=== PATIENT | female | born 1945 | race Two or more races ===

== ENCOUNTER 2017-07-03 11:28 | Inpatient (IN) | payer MEDICARE, OTHER ==
[~2017-07-03] VITALS: Ht 157.5 cm; Wt 94.6 kg
[~2017-07-03 11:28] MED LIST: BENA10TA3 PO; FERR-89 PO; METF500T4 PO; PIOG30TA10 PO; TNFMISC
[2017-07-03] MEDS ORDERED: IPRATROPIUM BROMIDE 0.5 MG/2.5 ML NEB SOLUTION NEB ONE ×2 (11:45→12:00)
[2017-07-03] MEDS ORDERED: 0.9% SODIUM CHLORIDE 5 ML NEB SOLUTION NEB ONE ×2 (11:45→12:34)
[2017-07-03] MEDS ORDERED: ALBUTEROL SULFATE 2.5 MG/0.5 ML NEB SOLUTION NEB ONE (11:45)
[2017-07-03] MEDS ORDERED: ALBUTEROL SULFATE 5 MG/ML 20 ML NEB SOLN [BULK] NEB ONE (12:00)
[2017-07-03 12:13] LABS: BASOPHILS # (AUTO) 0.03 K/uL (0.00-0.20); BASOPHILS % (AUTO) 0.5 % (0.0-2.0); EOSINOPHILS # (AUTO) 0.04 K/uL (0.00-0.70); EOSINOPHILS % (AUTO) 0.56 % (1.0-6.0); HEMATOCRIT 29.6 % (36-46); HEMOGLOBIN 9.5 g/dL (12.0-16.0); LYMPHOCYTES # (AUTO) 1.3 K/uL (1.0-4.8); LYMPHOCYTES % (AUTO) 18.9 % (22.0-44.0); MEAN CORPUSCULAR HEMOGLOBIN 29.4 pg (26.0-34.0); MEAN CORPUSCULAR HGB CONC 32.2 G/dL (31.0-37.0); MEAN CORPUSCULAR VOLUME 91 fL (80-100); MONOCYTES # (AUTO) 0.4 K/uL (0.1-1.0); MONOCYTES % (AUTO) 5.7 % (2.0-9.0); NEUTROPHILS # (AUTO) 5.2 K/uL (1.8-7.7); NEUTROPHILS % (AUTO) 74.4 % (40.0-70.0); PLATELET COUNT (AUTO) 213 K/uL (150-450); RED BLOOD CELL COUNT(AUTO) 3.24 MIL/uL (4.00-5.20)
[2017-07-03 12:22] LABS: CALCIUM, TOTAL 8.9 mg/dL (8.8-10.5); CREATININE 1.25 mg/dL (0.60-1.30); POTASSIUM 5.3 mmol/L (3.5-5.1)
[2017-07-03 12:30] LABS: LACTIC ACID 0.9 mmol/L (0.4-2.0)
[2017-07-03 12:37] LABS: ALBUMIN 3.1 g/dL (3.4-5.0); BILIRUBIN,TOTAL 0.2 mg/dL (0.1-1.0); TOTAL PROTEIN, SERUM 7.3 g/dL (6.4-8.2)
[2017-07-03 12:59] LABS: INFLUENZA TYPE A NEGATIVE FOR TYPE A (NEGATIVE); INFLUENZA TYPE B NEGATIVE FOR TYPE B (NEGATIVE)
[2017-07-03 13:20] LABS: APPEARANCE,URINE CLEAR (CLEAR); BILIRUBIN,URINE NEGATIVE (NEGATIVE); GLUCOSE, URINE (UA) 500 mg/dL (NEGATIVE); KETONES,URINE NEGATIVE (NEGATIVE); LEUKOCYTE ESTERASE ,URINE NEGATIVE (NEGATIVE); NITRATE,URINE NEGATIVE (NEGATIVE); OCCULT BLOOD,URINE TRACE (NEGATIVE); PH,URINE 5.5 (5.0-8.0); PROTEIN,URINE TRACE (NEGATIVE); UROBILINOGEN,URINE 0.2 mg/dL (<=1.0)
[2017-07-03 13:25] LABS: BACTERIA,URINE Few /HPF (None Seen); SQUAMOUS EPITHELIAL CELL,UR Few /LPF (None Seen); WBC,URINE 0-2 /HPF (0-5)
[2017-07-03] MEDS ORDERED: DEXAMETHASONE SOD PHOS 4 MG/ML 5 ML VIAL IVP ONE (13:45)
[2017-07-03] MEDS ORDERED: FUROSEMIDE 40 MG/4 ML VIAL IVP ONE (14:45)
[2017-07-03] MEDS ORDERED: ACETAMINOPHEN 325 MG TABLET PO PRN (15:45)
[2017-07-03] MEDS ORDERED: 0.9% SODIUM CHLORIDE 10 ML SYRINGE IVP PRN (15:45)
[2017-07-03] MEDS ORDERED: ONDANSETRON HCL 4 MG/2 ML VIAL IVP PRN (15:45)
[2017-07-03 18:50] VITALS: BP 138/74
[2017-07-03 20:11] VITALS: BP 123/61
[2017-07-03] MEDS ORDERED: INSULIN GLARGINE,HUM.REC.ANLOG 100 UNITS/ML SQ SCH (21:00)
[2017-07-03] MEDS ORDERED: DEXTROSE 50%-WATER 25 GM/50 ML SYRINGE IVP PRN (21:00)
[2017-07-03] MEDS: FUROSEMIDE 40 MG/4 ML VIAL IVP SCH (21:44)
[2017-07-03] MEDS: INSULIN ASPART 100 UNITS/ML SQ PRN (21:44)
[2017-07-03] MEDS ORDERED: INSNOV SQ (21:52)
[2017-07-03] MEDS ORDERED: INSLAN SQ (21:54)
[2017-07-03] MEDS ORDERED: POTASSIUM CHL 10 MEQ/WATER 50 ML IV PRN (22:30)
[2017-07-03] MEDS ORDERED: POTASSIUM CHLORIDE 20 MEQ ER TABLET PO PRN (22:30)
[2017-07-03] MEDS: INSULIN DETEMIR 100 UNITS/ML SQ SCH (23:42)
[2017-07-04 00:07] VITALS: BP 102/67
[2017-07-04 05:39] VITALS: BP 127/59
[2017-07-04] MEDS: INSULIN ASPART 100 UNITS/ML SQ PRN ×3 (06:12→21:25)
[2017-07-04 06:20] LABS: BASOPHILS % (AUTO) 0.4 % (0.0-2.0); EOSINOPHILS % (AUTO) 0 % (1.0-6.0); HEMATOCRIT 29.4 % (36-46); HEMOGLOBIN 9.8 g/dL (12.0-16.0); LYMPHOCYTES # (AUTO) 0.6 K/uL (1.0-4.8); LYMPHOCYTES % (AUTO) 8.1 % (22.0-44.0); MEAN CORPUSCULAR HEMOGLOBIN 30.3 pg (26.0-34.0); MEAN CORPUSCULAR HGB CONC 33.1 G/dL (31.0-37.0); MEAN CORPUSCULAR VOLUME 91 fL (80-100); MONOCYTES # (AUTO) 0.4 K/uL (0.1-1.0); MONOCYTES % (AUTO) 5.1 % (2.0-9.0); NEUTROPHILS # (AUTO) 6.1 K/uL (1.8-7.7); PLATELET COUNT (AUTO) 214 K/uL (150-450); RED BLOOD CELL COUNT(AUTO) 3.22 MIL/uL (4.00-5.20); RED CELL DISTRIBUTION WIDTH 17.2 % (11.5-14.5)
[2017-07-04 06:42] LABS: NEUTROPHILS % (AUTO) 86.4 % (40.0-70.0)
[2017-07-04 06:55] LABS: HEMOGLOBIN A1C 8.5 % (4.5-6.2)
[2017-07-04 06:59] LABS: CHOL/HDL RATIO 2.2 (3.9-5.7); CREATININE 1.25 mg/dL (0.60-1.30); POTASSIUM 5.3 mmol/L (3.5-5.1); THYROID STIMULATING HORMONE 19.66 uIU/mL (0.36-3.74)
[2017-07-04 07:24] VITALS: BP 100/60
[2017-07-04] MEDS: FUROSEMIDE 40 MG/4 ML VIAL IVP SCH ×2 (08:10→21:23)
[2017-07-04] MEDS: INSULIN ASPART 100 UNITS/ML SQ SCH ×3 (08:10→17:08)
[2017-07-04] MEDS ORDERED: SODIUM POLYSTYRENE SULFONATE 15 GM/60 ML SUSPENSION BOTTLE PO ONE (08:45)
[2017-07-04] MEDS ORDERED: CARVEDILOL 3.125 MG TABLET PO SCH (09:00)
[2017-07-04] MEDS ORDERED: ASPIRIN 81 MG CHEWABLE TABLET PO SCH (09:00)
[2017-07-04] MEDS ORDERED: METF850T2 PO (09:40)
[2017-07-04] MEDS ORDERED: OMEP20 PO (09:50)
[2017-07-04] MEDS ORDERED: ISOS10TA16 PO (09:50)
[2017-07-04] MEDS ORDERED: ASPI-556 PO (09:50)
[2017-07-04] MEDS ORDERED: HYDR25TA PO (09:50)
[2017-07-04] MEDS ORDERED: METO50 PO (09:50)
[2017-07-04] MEDS ORDERED: LEVO75 PO (09:50)
[2017-07-04] MEDS ORDERED: GLIP5 PO (10:20)
[2017-07-04 11:06] VITALS: BP 152/60
[2017-07-04] MEDS ORDERED: IOVERSOL 320 MG/ML 100 ML VIAL ONE (11:40)
[2017-07-04] MEDS ORDERED: LEVO100 PO (12:51)
[2017-07-04] MEDS ORDERED: ISOS20TA9 PO (12:51)
[2017-07-04] MEDS: BENAZEPRIL HCL 10 MG TABLET PO SCH (14:01)
[2017-07-04 14:12] LABS: FREE T4 (FREE THYROXINE) 0.5 ng/dL (0.76-1.46); POTASSIUM 4.4 mmol/L (3.5-5.1); THYROID STIMULATING HORMONE 44.85 uIU/mL (0.36-3.74)
[2017-07-04] MEDS ORDERED: ACETAMINOPHEN 325 MG TABLET PO PRN (14:15)
[2017-07-04 14:47] LABS: SOURCE, BLOOD GAS ARTERIAL
[2017-07-04 15:36] LABS: ABG BASE EXCESS 15.6 mmol/L (-2.0-3.0); ABG CARBOXYHEMOGLOBIN 1.5 % (0.0-1.5); ABG HCO3 36.8 mmol/L (22.0-26.0); ABG METHEMOGLOBIN 0.2 % (0.0-1.5); ABG OXYGEN SATURATION 93.1 % (95.0-98.0); ABG OXYHEMOGLOBIN 91.5 % (94.0-100.0); ABG PH 7.395 (7.35-7.450); ABG TOTAL HEMOGLOBIN 10.8 G/dL (12.0-18.0); PO2, ARTERIAL BG 67.1 mmHg (75.0-83.0)
[2017-07-04 15:37] LABS: ABG PCO2 67 mmHg (35-45); O2 DEVICE,BLOOD GAS CANNULA (ROOM AIR); SITE, BLOOD GAS LFT RADIAL
[2017-07-04 16:01] VITALS: BP 134/62
[2017-07-04] MEDS: METOPROLOL TARTRATE 50 MG TABLET PO SCH ×2 (17:07→21:23)
[2017-07-04 20:33] VITALS: BP 126/72
[2017-07-04] MEDS: ISOSORBIDE DINITRATE 20 MG TABLET PO SCH (21:23)
[2017-07-04] MEDS: INSULIN DETEMIR 100 UNITS/ML SQ SCH (21:24)
[2017-07-05] VITALS (7 sets, daily range): BP systolic 97–139; BP diastolic 42–71
[2017-07-05 06:09] LABS: BASOPHILS % (AUTO) 0.4 % (0.0-2.0); HEMATOCRIT 28.8 % (36-46); HEMOGLOBIN 9.4 g/dL (12.0-16.0); LYMPHOCYTES # (AUTO) 2.2 K/uL (1.0-4.8); MEAN CORPUSCULAR HEMOGLOBIN 29.9 pg (26.0-34.0); MEAN CORPUSCULAR HGB CONC 32.7 G/dL (31.0-37.0); MEAN CORPUSCULAR VOLUME 91 fL (80-100); MONOCYTES # (AUTO) 0.5 K/uL (0.1-1.0); MONOCYTES % (AUTO) 6.4 % (2.0-9.0); NEUTROPHILS # (AUTO) 4.6 K/uL (1.8-7.7); NEUTROPHILS % (AUTO) 62.2 % (40.0-70.0); PLATELET COUNT (AUTO) 215 K/uL (150-450); RED BLOOD CELL COUNT(AUTO) 3.15 MIL/uL (4.00-5.20); RED CELL DISTRIBUTION WIDTH 17.5 % (11.5-14.5)
[2017-07-05 06:29] LABS: CALCIUM, TOTAL 8.8 mg/dL (8.8-10.5); CREATININE 1.31 mg/dL (0.60-1.30); PHOSPHORUS 4.8 mg/dL (2.5-4.9); POTASSIUM 3.8 mmol/L (3.5-5.1)
[2017-07-05] MEDS ORDERED: LEVOTHYROXINE SODIUM 100 MCG TABLET PO SCH (06:30)
[2017-07-05] MEDS: FUROSEMIDE 40 MG/4 ML VIAL IVP SCH (07:34)
[2017-07-05] MEDS: METOPROLOL TARTRATE 50 MG TABLET PO SCH ×3 (07:34→23:30)
[2017-07-05] MEDS: ISOSORBIDE DINITRATE 20 MG TABLET PO SCH ×2 (07:34→23:30)
[2017-07-05] MEDS: ASPIRIN 81 MG EC TABLET PO SCH (07:34)
[2017-07-05] MEDS: INSULIN ASPART 100 UNITS/ML SQ SCH ×3 (07:35→17:59)
[2017-07-05] MEDS: BENAZEPRIL HCL 10 MG TABLET PO SCH (09:00)
[2017-07-05] MEDS: INSULIN ASPART 100 UNITS/ML SQ PRN ×2 (18:00→21:00)
[2017-07-05 19:58] LABS: GLUCOMETER DEV NAME(LOC) 5S 2N; GLUCOSE,POINT OF CARE 177 MG/DL (70-110)
[2017-07-05 19:58] LABS: GLUCOMETER DEV NAME(LOC) 5S 1L; GLUCOSE,POINT OF CARE 432 MG/DL (70-110)
[2017-07-05 19:58] LABS: GLUCOMETER DEV NAME(LOC) 5S 1L; GLUCOSE,POINT OF CARE 315 MG/DL (70-110)
[2017-07-05 19:58] LABS: GLUCOMETER DEV NAME(LOC) 5S 2N; GLUCOSE,POINT OF CARE 63 MG/DL (70-110)
[2017-07-05 19:58] LABS: GLUCOMETER DEV NAME(LOC) 5S 2N; GLUCOSE,POINT OF CARE 172 MG/DL (70-110)
[2017-07-05 19:58] LABS: GLUCOMETER DEV NAME(LOC) 5S 2N; GLUCOSE,POINT OF CARE 236 MG/DL (70-110)
[2017-07-05 19:58] LABS: GLUCOMETER DEV NAME(LOC) 5S 2N; GLUCOSE,POINT OF CARE 136 MG/DL (70-110)
[2017-07-05 19:58] LABS: GLUCOMETER DEV NAME(LOC) 5S 1L; GLUCOSE,POINT OF CARE 419 MG/DL (70-110)
[2017-07-05 19:58] LABS: GLUCOMETER DEV NAME(LOC) 5S 2N; GLUCOSE,POINT OF CARE 120 MG/DL (70-110)
[2017-07-05 19:58] LABS: GLUCOMETER DEV NAME(LOC) 5S 2N; GLUCOSE,POINT OF CARE 98 MG/DL (70-110)
[2017-07-05 19:58] LABS: GLUCOMETER DEV NAME(LOC) 5S 2N; GLUCOSE,POINT OF CARE 60 MG/DL (70-110)
[2017-07-05] MEDS: INSULIN DETEMIR 100 UNITS/ML SQ SCH (20:59)
[2017-07-06 03:52] LABS: GLUCOMETER DEV NAME(LOC) 5S 1L; GLUCOSE,POINT OF CARE 269 MG/DL (70-110)
[2017-07-06 04:04] VITALS: BP 125/79
[2017-07-06] MEDS: LEVOTHYROXINE SODIUM 150 MCG TABLET PO SCH (06:01)
[2017-07-06] MEDS: INSULIN ASPART 100 UNITS/ML SQ PRN ×3 (06:02→17:42)
[2017-07-06 06:45] LABS: CALCIUM, TOTAL 8.7 mg/dL (8.8-10.5); CREATININE 1.15 mg/dL (0.60-1.30)
[2017-07-06 07:27] VITALS: BP 126/67
[2017-07-06] MEDS: FUROSEMIDE 40 MG/4 ML VIAL IVP SCH (07:56)
[2017-07-06] MEDS: METOPROLOL TARTRATE 50 MG TABLET PO SCH ×3 (07:56→20:36)
[2017-07-06] MEDS: ASPIRIN 81 MG EC TABLET PO SCH (07:57)
[2017-07-06] MEDS: BENAZEPRIL HCL 10 MG TABLET PO SCH (07:58)
[2017-07-06] MEDS: ISOSORBIDE DINITRATE 20 MG TABLET PO SCH ×2 (07:58→22:04)
[2017-07-06 08:03] LABS: GLUCOMETER DEV NAME(LOC) 5S 2N; GLUCOSE,POINT OF CARE 122 MG/DL (70-110)
[2017-07-06] MEDS: INSULIN ASPART 100 UNITS/ML SQ SCH ×3 (08:03→17:41)
[2017-07-06 11:12] LABS: ABG A-A DIFF O2 22.3 mmHg (10-20.0); ABG BASE EXCESS 18.2 mmol/L (-2.0-3.0); ABG CARBOXYHEMOGLOBIN 1.9 % (0.0-1.5); ABG HCO3 39.1 mmol/L (22.0-26.0); ABG METHEMOGLOBIN 0.3 % (0.0-1.5); ABG OXYGEN CONTENT 12.5 mL/dL (15.0-23.0); ABG OXYGEN SATURATION 83.1 % (95.0-98.0); ABG OXYHEMOGLOBIN 81.3 % (94.0-100.0); ABG PCO2 67 mmHg (35-45); ABG PH 7.422 (7.35-7.450); ABG TOTAL HEMOGLOBIN 10.9 G/dL (12.0-18.0); PO2, ARTERIAL BG 47.3 mmHg (75.0-83.0); SITE, BLOOD GAS RT RADIAL; SOURCE, BLOOD GAS ARTERIAL; TEMPERATURE, FAHRENHEIT, BG 98.6 FAHREN (96.0-98.6)
[2017-07-06 11:13] LABS: O2 DEVICE,BLOOD GAS ROOM AIR (ROOM AIR)
[2017-07-06 11:22] LABS: GLUCOMETER DEV NAME(LOC) 5S 2N; GLUCOSE,POINT OF CARE 83 MG/DL (70-110)
[2017-07-06 11:42] VITALS: BP 122/53
[2017-07-06 15:08] VITALS: BP 120/60
[2017-07-06 19:33] VITALS: BP 141/76
[2017-07-06] MEDS: INSULIN DETEMIR 100 UNITS/ML SQ SCH (20:37)
[2017-07-06 23:49] VITALS: BP 113/61
[2017-07-07 00:38] LABS: GLUCOMETER DEV NAME(LOC) 5S 1L; GLUCOSE,POINT OF CARE 225 MG/DL (70-110)
[2017-07-07 00:38] LABS: GLUCOMETER DEV NAME(LOC) 5S 2N; GLUCOSE,POINT OF CARE 249 MG/DL (70-110)
[2017-07-07 04:13] VITALS: BP 136/67
[2017-07-07] MEDS: LEVOTHYROXINE SODIUM 150 MCG TABLET PO SCH (06:15)
[2017-07-07] MEDS: INSULIN ASPART 100 UNITS/ML SQ PRN (06:17)
[2017-07-07 07:02] LABS: GLUCOMETER DEV NAME(LOC) 5S 2N; GLUCOSE,POINT OF CARE 146 MG/DL (70-110)
[2017-07-07 08:12] VITALS: BP 101/50
[2017-07-07] MEDS: FUROSEMIDE 40 MG/4 ML VIAL IVP SCH (08:40)
[2017-07-07] MEDS: ISOSORBIDE DINITRATE 20 MG TABLET PO SCH (08:40)
[2017-07-07] MEDS: ASPIRIN 81 MG EC TABLET PO SCH (08:40)
[2017-07-07] MEDS: INSULIN ASPART 100 UNITS/ML SQ SCH (08:46)
[2017-07-07] MEDS: BENAZEPRIL HCL 10 MG TABLET PO SCH (09:00)
[2017-07-07] MEDS: METOPROLOL TARTRATE 50 MG TABLET PO SCH (09:00)
[2017-07-07] MEDS ORDERED: FURO-151 PO (09:59)
[2017-07-07] MEDS ORDERED: POTA8CAP10 PO (10:00)
[2017-07-07] MEDS ORDERED: METO25TA6 PO (10:02)
== END 2017-07-07 11:05 | disposition home or self-care (01) | DRG 291 ==
LOC: EMS 11:28 → 5S 16:55
PROVIDERS: ADMIT Hospitalist; ATTEND Hospitalist
DX: I13.0 Hypertensive heart and chronic kidney disease with heart failure and stage 1 through stage 4 chronic kidney disease, or unspecified chronic kidney disease (principal); G93.41 Metabolic encephalopathy; J96.01 Acute respiratory failure with hypoxia; J96.02 Acute respiratory failure with hypercapnia; E87.3 Alkalosis; R64 Cachexia; I50.31 Acute diastolic (congestive) heart failure; E11.22 Type 2 diabetes mellitus with diabetic chronic kidney disease; E11.65 Type 2 diabetes mellitus with hyperglycemia; E87.5 Hyperkalemia; J44.9 Chronic obstructive pulmonary disease, unspecified; E66.01 Morbid (severe) obesity due to excess calories; I25.10 Atherosclerotic heart disease of native coronary artery without angina pectoris; E03.9 Hypothyroidism, unspecified; E78.5 Hyperlipidemia, unspecified; N18.3 Chronic kidney disease, stage 3 (moderate); Z79.4 Long term (current) use of insulin; Z82.49 Family history of ischemic heart disease and other diseases of the circulatory system; Z83.3 Family history of diabetes mellitus; Z91.19 Patient's noncompliance with other medical treatment and regimen; Z98.61 Coronary angioplasty status; Z79.84 Long term (current) use of oral hypoglycemic drugs; Z68.38 Body mass index [BMI] 38.0-38.9, adult
CPT/HCPCS: 71260; 82805; 82962; 83036; 83605; 83735; 84100; 84132; 84439; 84443; 84481; 85651; 86140; 87040; 87804; 93005; 93306; 96374; 96375; 99285; J1100; J1815; J1940

== ENCOUNTER → 2019-03-28 | Outpatient (CLI) | payer MEDICARE, OTHER ==
[~2019-03-28] MED LIST changes: +ASPI-556 PO; +ATOR40TA28 PO; -BENA10TA3 PO; +BUME1TAB34 PO; -FERR-89 PO; +INSLAN SQ; +INSNOV SQ; +ISOS20TA9 PO; +LEVO150 PO; -METF500T4 PO; +METO50 PO; +OMEP20 PO; -PIOG30TA10 PO; +PRED10 PO; +SLOWK8 PO; -TNFMISC
[2019-03-28 16:01] LABS: CALCIUM, TOTAL 9.2 mg/dL (8.8-10.5); CREATININE 1.53 mg/dL (0.60-1.30); POTASSIUM 4.1 mmol/L (3.5-5.1)
== END | disposition home or self-care (01) ==
LOC: LABMN 15:09
PROVIDERS: ATTEND Internal Medicine Nephrology
DX: I12.9 Hypertensive chronic kidney disease with stage 1 through stage 4 chronic kidney disease, or unspecified chronic kidney disease (principal); E11.22 Type 2 diabetes mellitus with diabetic chronic kidney disease; N18.9 Chronic kidney disease, unspecified

== ENCOUNTER → 2019-11-04 | Outpatient (CLI) | payer MEDICARE, OTHER ==
[2019-11-04 14:42] LABS: ALBUMIN 2.9 g/dL (3.4-5.0); BILIRUBIN,TOTAL 0.2 mg/dL (0.1-1.0); CALCIUM, TOTAL 9.5 mg/dL (8.8-10.5); CHOL/HDL RATIO 3.7 (3.9-5.7); CREATININE 1.53 mg/dL (0.60-1.30); POTASSIUM 4.4 mmol/L (3.5-5.1); THYROID STIMULATING HORMONE 3.04 uIU/mL (0.36-3.74); TOTAL PROTEIN, SERUM 7.3 g/dL (6.4-8.2)
== END | disposition home or self-care (01) ==
LOC: LABMN 12:19
PROVIDERS: ATTEND Internal Medicine Nephrology
DX: I13.0 Hypertensive heart and chronic kidney disease with heart failure and stage 1 through stage 4 chronic kidney disease, or unspecified chronic kidney disease (principal); E11.22 Type 2 diabetes mellitus with diabetic chronic kidney disease; N18.9 Chronic kidney disease, unspecified; I50.9 Heart failure, unspecified; E03.9 Hypothyroidism, unspecified
CPT/HCPCS: 84443